=== PATIENT | female | born 1965 | race Caucasian/White ===

== ENCOUNTER 2018-02-19 16:14 | Emergency (ER) | payer OTHER ==
[2018-02-19 17:14] VITALS: TEMP 98.2
[2018-02-19] MEDS ORDERED: Albuterol-Ipratrop 3 mg / 0.5 (3 ml) UD INH STA (17:24)
[2018-02-19 17:28] VITALS: RESP 18
[2018-02-19] MEDS ORDERED: Albuterol-Ipratrop 3 mg / 0.5 (3 ml) UD ONE (17:39)
--- NOTE | 2018-02-19 17:42 | C.PDOC ---
History Of Present Illness 52 y/o female presents to the ED complaining of a 1 week history of cough, congestion, and production of yellow phlegm. No recent travel. No sick contacts. No fever or chills. Patient denies any SOB, chest tightness, nausea, vomiting, or dizziness. Time Seen by Provider: 02/19/18 17:21 Chief Complaint (Nursing): Shortness Of Breath History Per: Patient History/Exam Limitations: no limitations Onset/Duration Of Symptoms: Days Current Symptoms Are (Timing): Still Present Past Medical History Reviewed: Historical Data, Nursing Documentation, Vital Signs Vital Signs: Last Vital Signs Temp 98.2 F 02/19/18 17:11 Pulse 81 02/19/18 17:11 Resp 18 02/19/18 17:25 BP 134/83 02/19/18 17:11 Pulse Ox 97 02/19/18 17:11 Surgical History: No Surg Hx Family History: Denies: IA, CAD - Social History Hx Tobacco Use: No Hx Alcohol Use: Yes Hx Substance Use: No - Immunization History Hx Tetanus Toxoid Vaccination: No Hx Influenza Vaccination: No Hx Pneumococcal Vaccination: No Review Of Systems Except As Marked, All Systems Reviewed And Found Negative. Constitutional: Negative for: Fever, Chills ENT: Positive for: Nose Congestion Cardiovascular: Negative for: Chest Pain Respiratory: Positive for: Cough, Sputum (yellow). Negative for: Shortness of Breath, SOB with Excertion Gastrointestinal: Negative for: Nausea, Vomiting, Diarrhea Neurological: Negative for: Dizziness Physical Exam - Physical Exam Appears: Well, Non-toxic, No Acute Distress Skin: Warm, Dry Head: Atraumatic, Normacephalic Eye(s): bilateral: Normal Inspection, PERRL, EOMI Oral Mucosa: Moist Neck: Normal ROM Chest: Symmetrical Cardiovascular: Rhythm Regular Respiratory: Decreased Breath Sounds (scant diminished breath sounds), No Accessory Muscle Use, No Wheezing, Other (No retractions) Gastrointestinal/Abdominal: Soft, No Tenderness, No Distention Extremity: Bilateral: Atraumatic, Normal Color And Temperature Neurological/Psych: Oriented x3, Normal Speech ED Course And Treatment O2 Sat by Pulse Oximetry: 97 (RA) Pulse Ox Interpretation: Normal Medical Decision Making Medical Decision Making: Impression: Bronchitis Initial Plan: --Chest x-ray --Zithromax 500 mg PO --Prednisone 60 mg PO --Albuterol nebulizer x1 Patient will be discharged home on antibiotics. Counseled regarding diagnosis and follow up instructions. patient with improvement. Will attempt outpatient treatment with zithromax and flagyl follow up with pmd within 2 days return to ER if symptoms worsens or progress Disposition Counseled Patient/Family Regarding: Studies Performed, Diagnosis, Need For Followup, Rx Given - Disposition Referrals: Robson Retana Jr., MD [Medical Doctor] - Disposition: HOME/ ROUTINE Disposition Time: 18:46 Condition: STABLE Additional Instructions: follow up with Dr. Retana within 2 days call to make an appointment take medications as prescribed return to ER if symptoms worsens or progress Prescriptions: Albuterol HFA [Ventolin HFA 90 mcg/actuation (8 g)] 2 puff IH [id number] #1 puff Azithromycin [Zithromax] 250 mg PO DAILY #4 tab Metronidazole [Flagyl] 500 mg PO BID #20 tablet predniSONE [predniSONE Tab] 50 mg PO DAILY #4 tab Instructions: Pneumonia in Adults Forms: [facility] (Azeri), General Discharge Instructions - Clinical Impression Clinical Impression: Pneumonia - Scribe Statement The provider has reviewed the documentation as recorded by the Bibi Mccann Provider Attestation: All medical record entries made by the Bibi were at my direction and personally dictated by me. I have reviewed the chart and agree that the record accurately reflects my personal performance of the history, physical exam, medical decision making, and the department course for this patient. I have also personally directed, reviewed, and agree with the discharge instructions and disposition.
--- NOTE | 2018-02-19 18:15 | RAD ---
HISTORY: cough COMPARISON: Chest x-ray performed 05/19/15 TECHNIQUE: Chest PA and lateral FINDINGS: Examination limited by habitus. LUNGS: Right upper lobe opacity consistent with pneumonia. Please note that chest x-ray has limited sensitivity for the detection of pulmonary masses. PLEURA: No significant pleural effusion identified. No definite pneumothorax . CARDIOVASCULAR: Heart size appears within normal limits. No atherosclerotic calcification present. OSSEOUS STRUCTURES: Degenerative changes. VISUALIZED UPPER ABDOMEN: Unremarkable. OTHER FINDINGS: None. IMPRESSION: Evidence of right upper lobe pneumonia. Correlate clinically.
[2018-02-19 19:00] VITALS: BP 122/81; PULSE 76; O2SAT 99
== END 2018-02-19 18:59 | disposition home or self-care (01) ==
LOC: C.ER 16:14
DX: J18.9 Pneumonia, unspecified organism (principal)